=== PATIENT | male | born 2000 | race Two or more races ===

== ENCOUNTER 2024-09-13 19:47 | Emergency (ER) | payer OTHER ==
[~2024-09-13] VITALS: Ht 170.2 cm; Wt 68.5 kg
[2024-09-13 20:23] LABS: Urine Bacteria None Seen /hpf (None Seen)
[2024-09-13 20:50] LABS: Basophils # (auto) 0.1 10 ^3/uL (0-0.2); Basophils % (auto) 0.5 % (0.0-2.0); Eosinophils # (auto) 0.1 10 ^3/uL (0-0.8); Eosinophils % (auto) 0.7 % (0.0-7.0); Hematocrit 45.3 % (41.0-53.0); Hemoglobin 14.9 g/dL (13.5-17.5); Lymphocytes % (auto) 22.1 % (10.0-50.0); Mean Corpuscular Hemoglobin 28.5 pg (28.0-32.0); Mean Corpuscular Hgb Conc. 32.9 g/dL (32.0-36.0); Mean Corpuscular Volume 86.7 fL (80.0-100.0); Monocytes # (auto) 0.7 10 ^3/uL (0-1.3); Monocytes % (auto) 7.4 % (0.0-12.0); Neutrophils # (auto) 6.3 10 ^3/uL (1.6-8.6); Neutrophils % (auto) 69.3 % (37.0-80.0); Nucleated Red Blood Cells % 0.1 %; Platelet Count (auto) 264 10^3/uL (140-450); Red Blood Cells 5.22 10^6/uL (4.5-5.90); Red Cell Distribution Width 13.9 % (11.8-14.3); White Blood Cell 9.2 10^3/uL (4.4-10.8)
[2024-09-13 20:53] LABS: Urine Blood Negative /uL (Negative); Urine Clarity Clear (Clear); Urine Color Light-Yellow (Yellow); Urine Mucus FEW (None Seen); Urine Protein, UAD TRACE (Negative); Urine Specific Gravity 1.033 (1.001-1.035); Urine Squamous Epithelial Cell None Seen /hpf (<5); Urine Urobilinogen 2 mg/dL (Negative); Urine WBC < 1 /HPF (0-3)
[2024-09-13 21:15] LABS: Alkaline Phosphatase 88 U/L (46-116)
[2024-09-13 21:16] LABS: Alanine Aminotransferase 14 U/L (7-40); Anion Gap 8 (5-15); Aspartate Aminotransferase 15 U/L (13-40); BUN/Creatinine Ratio 15.8 (10.0-20.0); Bilirubin, Total 0.5 mg/dL (0.2-1.0); Blood Urea Nitrogen 16 mg/dL (9-23); Calcium 10.2 mg/dL (8.7-10.4); Carbon Dioxide 26 mmol/L (20-31); Chloride 104 mmol/L (98-107); Lipase 42 U/L (12-53); Potassium 3.9 mmol/L (3.5-5.1); Sodium 138 mmol/L (136-145)
[2024-09-13 21:33] LABS: Albumin 5.1 g/dL (3.2-4.8); Glucose 85 mg/dL (74-106); Total Protein 8.3 g/dL (5.7-8.2)
[2024-09-13 22:56] VITALS: RESP 14
[2024-09-13] MEDS: IOHEXOL 300 MG/ML 100ML BOTTLE IJ ONE (22:56)
--- NOTE | 2024-09-13 22:58 | ED.PDOC ---
GI ASSESSMENT HPI Comments 23-year-old male came to emergency room due to abdominal pain. States for the past 2 weeks, he has been having intermittent episodes of right lower quadrant abdominal pain, 8/10 intensity, worsens after meal intake, in associated bouts of nausea, vomiting and diarrhea. Denies any history of abdominal surgeries. No blood in the vomit or stool. Chief Complaint: Abdominal Pain Time Seen by MD: 22:56 Reviewed Notes: Nurses Notes Allergies: Coded Allergies: Ibuprofen (Verified Allergy, Unknown, 09/13/24) Information Source: Patient Mode of Arrival: Ambulatory Timing: Weeks Duration: Intermittent Quality: Cramping, Sharp, Stabbing Vomitus: Watery Stool: Loose, Watery Severity: Moderate Review of Systems REVIEW OF SYSTEMS: No fever, no chills, or fatigue HEENT: No sore throat, no earache, no congestion, no neck pain. Cardiac: No chest pain. No palpitations. Lungs: No shortness of breath, no cough. GI: (+) nausea, (+) vomiting, (+) diarrhea, no constipation, (+) abdominal pain : No dysuria, frequency, or urgency. No hematuria. No testicular pain or swelling. Musculoskeletal: No joint pain , no joint swelling, no extremity edema. Skin: No rash, no itching. Neuro: No headache, no dizziness, no weakness Vital Signs Vital Signs Date Time Temp Pulse Resp B/P (MAP) Pulse Ox O2 Delivery O2 Flow Rate FiO2 09/13/24 23:11 97.9 60 18 121/72 (88) 100 97.9 09/13/24 22:56 Room Air* 0 21 21 Physical Exam General: Awake, alert and oriented. No acute distress. Skin: Skin in warm, dry and intact. Appropriate color for ethnicity. Nailbeds pink with no cyanosis. HEENT: The head is normocephalic and atraumatic. Conjunctivae are clear without exudates or hemorrhage. Sclera is non-icteric. EOM are intact. No signs of nystagmus. Eyelids are normal in appearance without swelling or lesions. Oral mucosa is pink and moist Neck: The neck is supple with normal range of motion. No JVD. Cardiac: Heart rate and rhythm are normal. No murmurs, gallops, or rubs are auscultated. Respiratory: No signs of respiratory distress. Lung sounds are clear in all lobes bilaterally without rales, ronchi, or wheezes. Abdominal: Abdomen is soft, positive right lower quadrant tenderness, distention. No guarding, rebound or rigidity. Bowel sounds are present and normoactive in all four quadrants. Extremities: Upper and lower extremities are atraumatic in appearance without deformity or edema. Neurological: The patient is awake, alert and oriented to person, place, and time with normal speech. Speech is clear. There is no facial asymmetry. Psychiatric: Appropriate mood and affect. Good judgement and insight. No visual or auditory hallucinations. Past Medical History PAST MEDICAL HISTORY: Denies Surgical History: Denies all surgeries Family History Family History: Reviewed,noncontributory to illness Social History Smoker: Non-Smoker Alcohol: Denies ETOH Use Drugs: Denies Drug Use Lives In: Home Was a procedure done? Was a procedure done?: No GI differential Dx Differential Diagnosis: Appendicitis, Aortic dissection, Bowel Obstruction, Cholangitis, Cholecystitis, Constipation, Diverticular disease, Gastritis/PUD, Gastroenteritis, Ischemic Bowel, UTI, Urolithiasis, Other (Epididymitis, testicular torsion) X-Ray, Labs, Meds, VS Vital Signs Date Time Temp Pulse Resp B/P (MAP) Pulse Ox O2 Delivery O2 Flow Rate FiO2 09/13/24 23:11 97.9 60 18 121/72 (88) 100 97.9 09/13/24 22:56 14 Room Air* 0 21 21 09/13/24 20:01 98.5 78 16 125/72 (89) 100 98.5 Lab Test 09/13/24 20:38 09/13/24 20:04 Range/Units White Blood Count 9.2 4.4-10.8 10^3/uL Red Blood Count 5.22 4.5-5.90 10^6/uL Hemoglobin 14.9 13.5-17.5 g/dL Hematocrit 45.3 41.0-53.0 % Mean Corpuscular Volume 86.7 80.0-100.0 fL Mean Corpuscular Hemoglobin 28.5 28.0-32.0 pg Mean Corpuscular Hemoglobin Concent 32.9 32.0-36.0 g/dL Red Cell Distribution Width 13.9 11.8-14.3 % Platelet Count 264 140-450 10^3/uL Mean Platelet Volume 8.6 6.9-10.8 fL Neutrophils (%) (Auto) 69.3 37.0-80.0 % Lymphocytes (%) (Auto) 22.1 10.0-50.0 % Monocytes (%) (Auto) 7.4 0.0-12.0 % Eosinophils (%) (Auto) 0.7 0.0-7.0 % Basophils (%) (Auto) 0.5 0.0-2.0 % Neutrophils # (Auto) 6.3 1.6-8.6 10 ^3/uL Lymphocytes # (Auto) 2.0 0.4-5.4 10 ^3/uL Monocytes # (Auto) 0.7 0-1.3 10 ^3/uL Eosinophils # (Auto) 0.1 0-0.8 10 ^3/uL Basophils # (Auto) 0.1 0-0.2 10 ^3/uL Nucleated Red Blood Cells 0.1 % Sodium Level 138 136-145 mmol/L Potassium Level 3.9 3.5-5.1 mmol/L Chloride Level 104 98-107 mmol/L Carbon Dioxide Level 26 20-31 mmol/L Anion Gap 8 5-15 Blood Urea Nitrogen 16 9-23 mg/dL Creatinine 1.01 0.700-1.30 mg/dL Glomerular Filtration Rate Calc 108 >90 mL/min BUN/Creatinine Ratio 15.8 10.0-20.0 Serum Glucose 85 74-106 mg/dL Calcium Level 10.2 8.7-10.4 mg/dL Total Bilirubin 0.5 0.2-1.0 mg/dL Aspartate Amino Transferase (AST) 15 13-40 U/L Alanine Aminotransferase (ALT) 14 7-40 U/L Alkaline Phosphatase 88 46-116 U/L Total Protein 8.3 H 5.7-8.2 g/dL Albumin 5.1 H 3.2-4.8 g/dL Lipase 42 12-53 U/L Urine Color Light-yellow Yellow Urine Clarity Clear Clear Urine pH 6.0 5.0-9.0 Urine Specific [place] 1.033 1.001-1.035 Urine Protein Trace H Negative Urine Ketones 1+ H Negative Urine Blood Negative Negative /uL Urine Nitrite Negative Negative Urine Bilirubin Negative Negative Urine Urobilinogen 2 H Negative mg/dL Urine Leukocyte Esterase Negative Negative /uL Urine RBC 4 0 - 3 /hpf Urine Microscopic WBC < 1 0-3 /HPF Urine Squamous Epithelial Cells None seen <5 /hpf Urine Bacteria None seen None Seen /hpf Urine Mucus Few None Seen Urine Glucose Normal Normal mg/dL Time of 1ST Reevaluation: 22:54 Reevaluation 1ST: Unchanged Patient Education/Counseling: Diagnosis, Treatment Family Education/Counseling: Diagnosis, Treatment Departure 1 Departure Time of Disposition: 00:15 Impression: Primary Impression: Abdominal pain Disposition: 01 HOME / SELF CARE / HOMELESS Condition: Stable Additional Instructions: ED DISCHARGE INSTRUCTIONS Instructions: Please read all instructions provided in this packet carefully. Take Tylenol for pain as needed pain. Take Zofran/ondansetron as needed for vomiting. Although you have been discharged from the Emergency Department, this does not mean that you have a "clean bill of health". No definitive diagnosis for your symptoms has been made today. It is possible that you are in the process of developing a serious illness. This is why you must return to the ED without fail if any new or worsening symptoms (especially if your symptoms include chest pain, trouble breathing, worsening abdominal pain, fever, headache, confusion, trouble seeing, or trouble walking) It is also very important that you see a primary care doctor within the next 1-3 days to follow up. If you are unable to get an appointment, return to the ED for re-evaluation. Abdominal Pain: Care Instructions Overview Abdominal pain has many possible causes. Some aren't serious and get better on their own in a few days. Others need more testing and treatment. If your pain continues or gets worse, you need to be rechecked and may need more tests to find out what is wrong. You may need surgery to correct the problem. Don't ignore new symptoms, such as fever, nausea and vomiting, urination problems, pain that gets worse, and dizziness. These may be signs of a more serious problem. If you are not getting better, you may need more tests or treatment. The doctor has checked you carefully, but problems can develop later. If you notice any problems or new symptoms, get medical treatment right away. Follow-up care is a [place] part of your treatment and safety. Be sure to make and go to all appointments, and call your doctor if you are having problems. It's also a good idea to know your test results and keep a list of the medicines you take. How can you care for yourself at home? Rest until you feel better. To prevent dehydration, drink plenty of fluids. Choose water and other clear liquids until you feel better. If you have kidney, heart, or liver disease and have to limit fluids, talk with your doctor before you increase the amount of fluids you drink. When you feel like eating, start with small amounts. Do not have alcohol, caffeine, or spicy, hot, or high-fat foods for a day or two. Avoid anti-inflammatory medicines such as aspirin, ibuprofen (Advil, Motrin), and naproxen (Aleve). These can cause stomach upset. Talk to your doctor if you take daily aspirin for another health problem. When should you call for help? Call 911 anytime you think you may need emergency care. For example, call if: You passed out (lost consciousness). You pass maroon or very bloody stools. You vomit blood or what looks like coffee grounds. You have severe belly pain. Call your doctor now or seek immediate medical care if: Your pain gets worse, especially if it becomes focused in one area of your belly. You have a new or higher fever. Your stools are black and look like tar, or they have streaks of blood. You have unexpected vaginal bleeding. You have symptoms of a urinary tract infection. These may include: Pain when you urinate. Urinating more often than usual. Blood in your urine. You are dizzy or lightheaded, or you feel like you may faint. Watch closely for changes in your health, and be sure to contact your doctor if: You are not getting better as expected. Credits for Abdominal Pain: Care Instructions Current as of: April 19, 2023 Author: [employer] [place] Staff Clinical Review Board All [employer] education is reviewed by a team that includes physicians, nurses, advanced practitioners, registered dieticians, and other healthcare professionals. e-Prescriptions Ondansetron Odt 4MG Tab (ZOFRAN PO) 4 Mg Tb 4 MG PO TIDPRN PRN for 3 Days, #9 TAB ODT TAB-DISSOLVE IN MOUTH, THEN SWALLOW Prov: RAY ESTRADA MD 09/14/24 Acetaminophen (Acetaminophen Er) 650 Mg Tab 650 MG PO TIDPRN PRN for 3 Days, #9 TAB Prov: RAY ESTRADA MD 09/14/24 Comments 23-year-old male presented with abdominal pain. No peritoneal signs on abdominal exam. No evidence of acute abdomen at this time. patient is well appearing. Labs show no leukocytosis or elevation of LFTs. Imaging shows no acute process. Patient is afebrile. Patient is not hypotensive. Low suspicion for acute hepatobiliary disease (including acute cholecystitis, acute pancreatitis, PUD (including perforation), acute infectious process (pneumonia, hepatitis, pyelonephritis), acute appendicitis, vascular catastrophe, bowel obstructions, viscous perforation. Presentation not consistent with other acute, emergent causes of abdominal pain at this time. Patient well-appearing, nontoxic. Advised prompt follow-up with PCP, return to the ED with any new, worsening or concerning symptoms. Extensive evaluation was performed in attempt to identify or rule out: (See differential diagnosis section) The following tests were ordered, and results were reviewed by me and discussed with the patient: (See diagnostic results section) The following test were independently interpreted by me: N/A I reviewed and agreed with the following test results read by other providers: N/A I reviewed the following notes from the pt's past medical encounters: (None available at this time) Additional information was gathered from interviewing the following independent historians: N/A Drug therapy requiring intensive monitoring for toxicity: IV contrast Parenteral controlled substances: N/A Decision regarding elective major surgery with identified patient or procedure risk factors: N/A Decision regarding emergency major surgery: N/A Decision not to resuscitate or to de-escalate care because of poor prognosis: N/A Diagnosis or treatment significantly limited by social determinants of health: N/A Decision regarding hospitalization or escalation of hospital level of care: Risks and benefits of admission for further treatment of patient's condition was considered however due to patient's stable condition patient will be discharged to follow up closely or return to care for worsening of condition or inability to follow up. Critical Care Note Critical Care Time?: No Stability Stability form required: No Heart Score Heart Score: Heart Score Response (Comments) Value History N/A 0 EKG N/A 0 Age N/A 0 Risk Factors N/A 0 Troponin N/A 0 Total 0 I personally scribed for RAY ESTRADA MD ([email or web address]) on 09/13/24 at 22:58. Electronically submitted by Jeremias Alvarado ([facility] ([facility]3]). RAY ESTRADA MD Sep 13, 2024 22:58
[2024-09-13 23:11] VITALS: BP 121/72; PULSE 60; RESP 18; O2SAT 100
--- NOTE | 2024-09-13 23:22 | DVH ---
CT OF THE ABDOMEN AND PELVIS WITH CONTRAST. HISTORY: Right lower quadrant abdominal COMPARISON: None TECHNIQUE: Helical axial CT images of the abdomen and pelvis were obtained with intravenous contrast. Multiplanar reformats. One or more of the following radiation dose reduction techniques were used fo r this examination: automated exposure control, adjustment of the mA and/or kV according to patient s ize, use of iterative reconstruction technique. FINDINGS: Imaged lung bases are grossly clear. Liver: No discrete hepatic lesions as visualized. Gallbladder and biliary system: No sizable, radiopaque cholelithiasis or biliary ductal dilatation. Pancreas: Negative. Spleen: Negative. Adrenal Glands: Negative. Kidneys and collecting system: No hydroureteronephrosis. Retroperitoneum: No evidence of abdominal aortic aneurysm. Lymph nodes: No discretely enlarged lymph nodes identified. Bowel: No evidence of bowel obstruction. Normal caliber appendix. No free intraperitoneal air or flui d identified. Pelvis: No sizable bladder calculus. Osseous structures: No destructive osseous lesions identified. IMPRESSION: No bowel obstruction, free intraperitoneal air/fluid or sizable inflammatory collections identified a t this time.
[2024-09-14] MEDS ORDERED: KETOROLAC TROMETH 30 MG/ML 1ML VIAL IV ONE (00:15)
[2024-09-14] MEDS ORDERED: ACET650T12 PO (00:19)
[2024-09-14] MEDS ORDERED: ZOFR4T PO (00:19)
[2024-09-14 00:31] VITALS: TEMP 98.9
[2024-09-14] MEDS: ACETAMINOPHEN 325 MG TAB PO ONE (00:31)
== END 2024-09-14 00:32 | disposition home or self-care (01) ==
LOC: ER 19:55
DX: R10.31 Right lower quadrant pain (principal); Z88.6 Allergy status to analgesic agent
CPT/HCPCS: 36415; 74177; 80053; 81001; 83690; 85025; 99285; Q9967

== ENCOUNTER 2024-10-01 14:10 | Inpatient (IN) | payer MEDICAID, OTHER ==
[~2024-10-01] VITALS: Ht 175.3 cm; Wt 67.1 kg
[~2024-10-01 14:10] MED LIST: ACET650T12 PO; ZOFR4T PO
[2024-10-01 16:45] LABS: Urine Bacteria None Seen /hpf (None Seen)
--- NOTE | 2024-10-01 16:48 | DVH ---
INDICATION: RLQ pain. r/o appendicitis TECHNIQUE: Graded compression technique along with Multiple real-time sonographic images were obtain ed for evaluation of the right lower quadrant. FINDINGS: The appendix was not visualized. No free fluid or lymph nodes are seen on this exam. IMPRESSION: 1.Nonvisualization of the appendix, thus cannot exclude appendicitis.
[2024-10-01 16:59] LABS: Urine Blood Negative /uL (Negative); Urine Clarity Clear (Clear); Urine Color Yellow (Yellow); Urine Mucus FEW (None Seen); Urine Protein, UAD TRACE (Negative); Urine Specific Gravity 1.034 (1.001-1.035); Urine Squamous Epithelial Cell FEW /hpf (<5); Urine Urobilinogen Normal (Negative); Urine WBC 1 /HPF (0-3)
--- NOTE | 2024-10-01 17:13 | ED.PDOC ---
GI ASSESSMENT HPI Comments 23-YEAR-OLD MALE PRESENTS TO ER WITH COMPLAINTS OF ABDOMINAL PAIN X3 WEEKS. PATIENT IS PRESENT WITH MOTHER WITH PAST MEDICAL HISTORY OF AUTISM, REPORTING THAT HE HAS BEEN EXPERIENCING INTERMITTENT RIGHT LOWER QUADRANT ABDOMINAL PAIN X3 WEEKS THAT GOT WORSE/PERSISTENT X1 HOUR PROMPTING PATIENT TO COME TO ER FOR FURTHER EVALUATION. HE RATES HIS CURRENT PAIN A 3/10 TO RIGHT LOWER QUADRANT ABDOMEN WITHOUT RADIATION. DENIES USE OF MEDICATIONS FOR CURRENT SYMPTOMS. PATIENT PRESENTS TO ER AMBULATORY ON ARRIVAL, WITH STEADY GAIT, IN NO DISTRESS, WITH VITALS STABLE. DENIES FEVER, BODY ACHES, CHILLS, NAUSEA/VOMITING, CHANGES IN URINATION/BM OR ANY FURTHER SYMPTOMS/COMPLAINTS Chief Complaint: Abdominal Pain Time Seen by MD: 15:28 Primary Care Provider: UNKNOWN Reviewed Notes: Nurses Notes, Medications, Allergies Allergies: Coded Allergies: Ibuprofen (Verified Allergy, Unknown, 09/13/24) Home Meds Active Scripts Levofloxacin Hemihydrate (LEVOFLOXACIN) 500 Mg Tab, 1 TAB PO DAILY for 7 Days, #7 TAB Prov:KISHORE VELÁZQUEZ MD 10/04/24 Information Source: Patient Mode of Arrival: Ambulatory Past Medical History Past Medical History (Other): AUTISM Surgical History: Denies all surgeries Family History Family History: Unknown Social History Smoker: Non-Smoker Alcohol: Denies ETOH Use Drugs: Denies Drug Use Lives In: Home Constitutional: denies: chills, diaphoresis, fatigue, fever, malaise, sweats, weakness, others EENTM: denies: blurred vision, double vision, ear bleeding, ear discharge, ear drainage, ear pain, ear ringing, eye pain, eye redness, hearing loss, mouth pain, mouth swelling, nasal discharge, nose bleeding, nose congestion, nose pain, photophobia, tearing, throat pain, throat swelling, voice changes, others Respiratory: denies: cough, hemoptysis, orthopnea, SOB at rest, shortness of breath, SOB with excertion, stridor, wheezing, others Cardiovascular: denies: chest pain, dizzy spells, diaphoresis, Dyspnea on exertion, edema, irregular heart beat, left arm pain, lightheadedness, palpitations, PND, syncope, others Gastrointestinal: reports: others ( STATED IN HPI) Genitourinary: denies: burning, dysuria, flank pain, frequency, hematuria, incontinence, penile discharge, penile sore, pain, testicle pain, testicle swelling, urgency, others Neurological: denies: dizziness, fainting, headache, left sided numbness, left sided weakness, numbness, paresthesia, pre-existing deficit, right sided numbness, right sided weakness, seizure, speech problems, tingling, tremors, weakness, others Musculoskeletal: denies: back pain, gout, joint pain, joint swelling, muscle pain, muscle stiffness, neck pain, others Integumetry: denies: bruises, change in color, change in hair/nails, dryness, laceration, lesions, lumps, rash, wounds, others Allergic/Immunocompromised: denies: Difficulty Healing, Frequent Infections, Hives, Itching, others Hematologic/Lymphatic: denies: anemia, blood clots, easy bleeding, easy bruising, swollen glands, others Endocrine: denies: excessive hunger, excessive sweating, excessive thirst, excessive urination, flushing, intolerance to cold, intolerance to heat, une xplained weight gain, unexplained weight loss, others Psychiatric: denies: anxiety, bipolar disorder, depression, hopeless, panic disorder, schizophrenia, sleepless, suicidal, others Physical Exam General Appearance: No Apparent Distress HEENT: PERRL/EOMI Neck: Full Range of Motion, Non-Tender, Normal Respiratory: Chest Non-Tender, Lungs Clear, No Accessory Muscle Use, No Respiratory Distress, Normal Breath Sounds Cardiovascular: No Murmur, No Gallop, Regular Rate/Rhythm Breast Exam: Deferred Gastrointestinal: No Organomegaly, No Pulsatile Mass, Normal Bowel Sounds, RLQ (TTP TO RIGHT LOWER QUADRANT OF ABDOMEN NOTED. NEGATIVE ROVSING'S, PSOAS AND OBTURATOR SIGN. NO REBOUND/GUARDING NOTED. 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 Was a procedure done?: No Sedation Sedation?: No GI differential Dx Differential Diagnosis: GI hemorrhage, Ischemic Bowel, Trauma intraabdominal X-Ray, Labs, Meds, VS Vital Signs Date Time Temp Pulse Resp B/P (MAP) Pulse Ox O2 Delivery O2 Flow Rate FiO2 10/01/24 20:33 67 10/01/24 15:29 97.9 69 20 110/69 (83) 98 97.9 10/01/24 15:29 69 20 98 Room Air 10/01/24 14:11 97.9 69 20 110/64 (79) 98 97.9 Lab Test 10/01/24 19:52 10/01/24 19:40 10/01/24 17:49 10/01/24 14:38 Range/Units Prothrombin Time 11.4 9.3-11.8 sec Prothrombin Time INR 1.08 0.9-1.15 Activated Partial Thromboplast Time 33.1 24.5-34.5 SEC Magnesium Level 2.0 1.6-2.6 mg/dL Aspartate Amino Transferase (AST) 15 13-40 U/L Alanine Aminotransferase (ALT) 14 7-40 U/L Alkaline Phosphatase 94 46-116 U/L Lipase 42 12-53 U/L Thyroid Stimulating Hormone (TSH) 1.45 0.55-4.78 uIU/mL Lactic Acid Level 1.1 0.4-2.0 mmol/L White Blood Count 6.9 4.4-10.8 10^3/uL Red Blood Count 4.67 4.5-5.90 10^6/uL Hemoglobin 13.8 13.5-17.5 g/dL Hematocrit 40.2 L 41.0-53.0 % Mean Corpuscular Volume 86.2 80.0-100.0 fL Mean Corpuscular Hemoglobin 29.6 28.0-32.0 pg Mean Corpuscular Hemoglobin Concent 34.3 32.0-36.0 g/dL Red Cell Distribution Width 14.4 H 11.8-14.3 % Platelet Count 240 140-450 10^3/uL Mean Platelet Volume 8.6 6.9-10.8 fL Neutrophils (%) (Auto) 60.9 37.0-80.0 % Lymphocytes (%) (Auto) 29.3 10.0-50.0 % Monocytes (%) (Auto) 8.0 0.0-12.0 % Eosinophils (%) (Auto) 1.2 0.0-7.0 % Basophils (%) (Auto) 0.6 0.0-2.0 % Neutrophils # (Auto) 4.2 1.6-8.6 10 ^3/uL Lymphocytes # (Auto) 2.0 0.4-5.4 10 ^3/uL Monocytes # (Auto) 0.6 0-1.3 10 ^3/uL Eosinophils # (Auto) 0.1 0-0.8 10 ^3/uL Basophils # (Auto) 0 0-0.2 10 ^3/uL Nucleated Red Blood Cells 0.1 % Sodium Level 138 136-145 mmol/L Potassium Level 4.0 3.5-5.1 mmol/L Chloride Level 104 98-107 mmol/L Carbon Dioxide Level 25 20-31 mmol/L Anion Gap 9 5-15 Blood Urea Nitrogen 14 9-23 mg/dL Creatinine 0.79 0.700-1.30 mg/dL Glomerular Filtration Rate Calc 129 >90 mL/min BUN/Creatinine Ratio 17.7 10.0-20.0 Serum Glucose 87 74-106 mg/dL Calcium Level 9.8 8.7-10.4 mg/dL Urine Color Yellow Yellow Urine Clarity Clear Clear Urine pH 6.0 5.0-9.0 Urine Specific [place] 1.034 1.001-1.035 Urine Protein Trace H Negative Urine Ketones Negative Negative Urine Blood Negative Negative /uL Urine Nitrite Negative Negative Urine Bilirubin Negative Negative Urine Urobilinogen Normal Negative mg/dL Urine Leukocyte Esterase Negative Negative /uL Urine RBC 3 0 - 3 /hpf Urine Microscopic WBC 1 0-3 /HPF Urine Squamous Epithelial Cells Few <5 /hpf Urine Bacteria None seen None Seen /hpf Urine Mucus Few None Seen Urine Glucose Normal Normal mg/dL Urine Opiates Screen Neg NEGATIVE Urine Fentanyl Screen Neg NEGATIVE Urine Barbiturates Screen Neg NEGATIVE Urine Phencyclidine Screen Neg NEGATIVE Urine Amphetamines Screen Neg NEGATIVE Urine Benzodiazepines Screen Neg NEGATIVE Urine Cocaine Screen Neg NEGATIVE Urine Cannabinoids Screen Neg NEGATIVE Microbiology Date/Time Source Procedure Growth Status 10/01/24 19:52 Blood Blood Culture - Preliminary NO GROWTH AFTER 72 HOURS OF INCUBATION. Resulted 10/01/24 19:40 Blood Blood Culture - Preliminary NO GROWTH AFTER 72 HOURS OF INCUBATION. Resulted PATIENT: KATELYN BIGGS ACCT: [id number] UNIT: [id number] : 2000 LOC: ER ROOM / BED: / AGE / SEX: 23 / M ADM STATUS: REG ER SERVICE 1717 ORDERING PHYSICIAN: MINA GREEN NP PROCEDURE(s): ABPLIV - CT AB PEL WITH IV CON ONLY REASON: RLQ pain. R/o appendicitis ORDER NUMBER(s): [id number], ACCESSION NUMBER(s): [id number] CT OF THE ABDOMEN AND PELVIS WITH CONTRAST. HISTORY: RLQ pain. R/o appendicitis COMPARISON: CT CT AB PEL WITH IV CON ONLY on DOS: 09/13/24 TECHNIQUE: Helical axial CT images of the abdomen and pelvis were obtained with intravenous contrast. Multiplanar reformats. One or more of the following radiation dose reduction techniques were used for this examination: automated exposure control, adjustment of the mA and/or kV according to patient size, use of iterative reconstruction technique. FINDINGS: Imaged lung bases are grossly clear. Liver: No discrete hepatic lesions as visualized. Gallbladder and biliary system: No sizable, radiopaque cholelithiasis or biliary ductal dilatation. Pancreas: Negative. Spleen: Negative. Adrenal Glands: Negative. Kidneys and collecting system: No hydroureteronephrosis. Retroperitoneum: No evidence of abdominal aortic aneurysm. Lymph nodes: No discretely enlarged lymph nodes identified. Bowel: No evidence of bowel obstruction. Appendix measures approximately 8 mm in diameter. No periappendiceal inflammation or fluid. No sizable appendicolith. No free intraperitoneal air. Pelvis: No sizable bladder calculus. Osseous structures: No destructive osseous lesions identified. IMPRESSION: Borderline prominence of the appendix. No periappendiceal inflammatory changes noted at this time. ATED BY: MARQUIS THURMAN MD DICTATED DATE/TIME: 10/01/241858 SIGNED BY: MARQUIS THURMAN MD SIGNED DATE/TIME: 10/01/241858 CC: PATIENT: KATELYN BIGGS ACCT: [id number] UNIT: [id number] : 2000 LOC: ER ROOM / BED: / AGE / SEX: 23 / M ADM STATUS: REG ER SERVICE 1604 ORDERING PHYSICIAN: MINA GREEN NP PROCEDURE(s): RTLQD - RIGHT LOWER QUAD REASON: RLQ pain. r/o appendicitis ORDER NUMBER(s): [id number], ACCESSION NUMBER(s): [id number] INDICATION: RLQ pain. r/o appendicitis TECHNIQUE: Graded compression technique along with Multiple real-time sonographic images were obtained for evaluation of the right lower quadrant. FINDINGS: The appendix was not visualized. No free fluid or lymph nodes are seen on this exam. IMPRESSION: 1.Nonvisualization of the appendix, thus cannot exclude appendicitis. 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 MEMBER VERBALIZED UNDERSTANDING AND AGREEABLE WITH CURRENT PLAN OF CARE PATIENT RESTING COMFORTABLY AT BEDSIDE PATIENT ADMITTED TO HOSPITALIST FOR ACUTE APPENDICITIS/NEED FOR SURGICAL CONSULT Images Reviewed?: Images reviewed and evaluated by me Time of 1ST Reevaluation: 18:05 Reevaluation 1ST: N/A Time of 2ND Reevaluation: 19:02 Reevaluation 2ND: Unchanged Patient Education/Counseling: Diagnosis, Treatment Family Education/Counseling: Diagnosis, Treatment Change of Shift?: Yes (ENDORSED PATIENT FROM [facility] ENRIQUEZ AT SHIFT CHANGE) Departure 1 Departure Time of Disposition: 19:22 Impression: Primary Impression: Appendicitis, acute Qualified Codes: K35.80 - Unspecified acute appendicitis Disposition: ADMITTED INPATIENT Condition: Stable e-Prescriptions Levofloxacin Hemihydrate (LEVOFLOXACIN) 500 Mg Tab 1 TAB PO DAILY for 7 Days, #7 TAB Prov: KISHORE VELÁZQUEZ MD 10/04/24 Critical Care Note Critical Care Time?: No Stability Stability form required: No Heart Score Heart Score: Heart Score Response (Comments) Value History N/A 0 EKG N/A 0 Age N/A 0 Risk Factors N/A 0 Troponin N/A 0 Total 0 MINA GREEN NP Oct 01, 2024 17:13 JERONIMO BLUE Oct 01, 2024 19:27
[2024-10-01 17:59] LABS: Basophils # (auto) 0 10 ^3/uL (0-0.2); Basophils % (auto) 0.6 % (0.0-2.0); Eosinophils # (auto) 0.1 10 ^3/uL (0-0.8); Eosinophils % (auto) 1.2 % (0.0-7.0); Hematocrit 40.2 % (41.0-53.0); Hemoglobin 13.8 g/dL (13.5-17.5); Lymphocytes % (auto) 29.3 % (10.0-50.0); Mean Corpuscular Hemoglobin 29.6 pg (28.0-32.0); Mean Corpuscular Hgb Conc. 34.3 g/dL (32.0-36.0); Mean Corpuscular Volume 86.2 fL (80.0-100.0); Monocytes # (auto) 0.6 10 ^3/uL (0-1.3); Neutrophils # (auto) 4.2 10 ^3/uL (1.6-8.6); Neutrophils % (auto) 60.9 % (37.0-80.0); Nucleated Red Blood Cells % 0.1 %; Platelet Count (auto) 240 10^3/uL (140-450); Red Blood Cells 4.67 10^6/uL (4.5-5.90); Red Cell Distribution Width 14.4 % (11.8-14.3); White Blood Cell 6.9 10^3/uL (4.4-10.8)
[2024-10-01 18:09] LABS: Anion Gap 9 (5-15); Carbon Dioxide 25 mmol/L (20-31); Chloride 104 mmol/L (98-107); Sodium 138 mmol/L (136-145)
[2024-10-01 18:10] LABS: Calcium 9.8 mg/dL (8.7-10.4)
[2024-10-01 18:15] LABS: BUN/Creatinine Ratio 17.7 (10.0-20.0); Blood Urea Nitrogen 14 mg/dL (9-23); Glucose 87 mg/dL (74-106)
[2024-10-01] MEDS: IOHEXOL 300 MG/ML 100ML BOTTLE IJ ONE (18:16)
--- NOTE | 2024-10-01 19:01 | DVH ---
CT OF THE ABDOMEN AND PELVIS WITH CONTRAST. HISTORY: RLQ pain. R/o appendicitis COMPARISON: CT CT AB PEL WITH IV CON ONLY on DOS: 09/13/24 TECHNIQUE: Helical axial CT images of the abdomen and pelvis were obtained with intravenous contrast. Multiplanar reformats. One or more of the following radiation dose reduction techniques were used fo r this examination: automated exposure control, adjustment of the mA and/or kV according to patient s ize, use of iterative reconstruction technique. FINDINGS: Imaged lung bases are grossly clear. Liver: No discrete hepatic lesions as visualized. Gallbladder and biliary system: No sizable, radiopaque cholelithiasis or biliary ductal dilatation. Pancreas: Negative. Spleen: Negative. Adrenal Glands: Negative. Kidneys and collecting system: No hydroureteronephrosis. Retroperitoneum: No evidence of abdominal aortic aneurysm. Lymph nodes: No discretely enlarged lymph nodes identified. Bowel: No evidence of bowel obstruction. Appendix measures approximately 8 mm in diameter. No periapp endiceal inflammation or fluid. No sizable appendicolith. No free intraperitoneal air. Pelvis: No sizable bladder calculus. Osseous structures: No destructive osseous lesions identified. IMPRESSION: Borderline prominence of the appendix. No periappendiceal inflammatory changes noted at this time.
--- NOTE | 2024-10-01 19:46 | DVH ---
CHEST RADIOGRAPH Indication: PRE-OP Technique: Single frontal view of the chest was obtained Comparison: None FINDINGS: Lines and Tubes: None Lungs: No focal consolidation. Pleura: No effusion. No pneumothorax. Cardiomediastinal contours: Unremarkable Bones: No acute osseous abnormality. IMPRESSION: 1. No active cardiopulmonary disease.
[2024-10-01] MEDS: PIPERACILLIN-TAZOB 3.375GM 100 ML IV ONE (20:09)
[2024-10-01 20:26] LABS: Alanine Aminotransferase 14 U/L (7-40); Alkaline Phosphatase 94 U/L (46-116); Lipase 42 U/L (12-53)
[2024-10-01 20:27] LABS: Aspartate Aminotransferase 15 U/L (13-40)
[2024-10-01 20:45] LABS: INR 1.08 (0.9-1.15); Partial Thromboplastin Time 33.1 SEC (24.5-34.5); Prothrombin Time 11.4 sec (9.3-11.8)
--- NOTE | 2024-10-01 22:28 | DVHHPRES ---
History of Present Illness Resident Creating Document: TAMAR MORRIS RESDIENT History of Present Illness 24 yo Old male with past medical history of autism came to the hospital due to abdominal pain since 1 month. Per patient, 1st she had abdominal pain around epigastric area, which later transferred to the right lower quadrant. He describes the pain as burning, 5/10, constant but increased with taking food. He also reports nausea, diarrhea and dysuria. He denies fever, vomiting, or any recent sick contacts. PMHx: Autism PSHx: Not significant Family history: Father has diabetes Social history: Lives with the family at home, denies smoking or any other drug use Home medication: Does not take any medicine Allergic history: Ibuprofen Review of Systems Review of Systems General: patient denies fever, fatigue, weaknes, sweating, any recent changes in appetite and weight HEENT: No headaches, visiual changes, hearing loss, tinnitus, nasal congestion and discharge, and sore throat. Cardiovascular: Denies chest pain, palpitations, dyspnea on exertion, orthopnea, or claudication. Respiratory: No cough, and wheezing. Gastrointestinal: Reports nausea and abdominal pain Genitourinary: Reports dysuria Endocrine: No heat or cold intolerance, polydipsia, polyuria, and polyphagia. Neurological: No dizziness, extremity weakness and numbness, tremors, gait disturbance, seizures, and memory impairment. Psychiatric: Denies depression, anxiety,or insomnia. Musculoskeletal: Denies neck pain, stiffness and swelling, back pain, muscle weakness, joint pain, stiffness, swelling, or limited range of motion. Skin: No rashes, itching, skin lesion, changes in hair, nail, skin texture and breast. Hematologic/Lymphatic: Denies easy bruising, bleeding tendencies, or lymph node enlargement. Allergies: Coded Allergies: Ibuprofen (Verified Allergy, Unknown, 09/13/24) Exam Vital Signs Vital Signs Date Time Temp Pulse Resp B/P (MAP) Pulse Ox O2 Delivery O2 Flow Rate FiO2 10/01/24 20:33 67 10/01/24 15:29 97.9 20 110/69 (83) 98 97.9 10/01/24 15:29 Room Air Exam General Appearance: Alert, Oriented X3, Cooperative, No acute distress HEENT: Atraumatic, PERRLA, EOMI, Mucous membrane moist/pink Respiratory: Clear to auscultation, Normal air movement Cardiovascular: Regular rate, Normal S1, Normal S2, No murmurs, no chest wall tenderness Abdominal: Mild right lower quadrant tenderness Extremities: No clubbing, No cyanosis, No edema, Normal pulses, No tenderness/swelling Skin: No rashes, No breakdown, No significant lesion Neuro: Normal gait, Normal speech, Strength at 5/5 X4 ext, Normal tone, Sensation intact, Cranial nerves 3-12 NL, Reflexes 2+ Psych/Mental Status: Mental status NL, Mood NL Labs/Xrays Labs Test 10/01/24 19:52 10/01/24 19:40 10/01/24 17:49 10/01/24 14:38 Range/Units Prothrombin Time 11.4 9.3-11.8 sec Prothrombin Time INR 1.08 0.9-1.15 Activated Partial Thromboplast Time 33.1 24.5-34.5 SEC Aspartate Amino Transferase (AST) 15 13-40 U/L Alanine Aminotransferase (ALT) 14 7-40 U/L Alkaline Phosphatase 94 46-116 U/L Lipase 42 12-53 U/L Lactic Acid Level 1.1 0.4-2.0 mmol/L White Blood Count 6.9 4.4-10.8 10^3/uL Red Blood Count 4.67 4.5-5.90 10^6/uL Hemoglobin 13.8 13.5-17.5 g/dL Hematocrit 40.2 L 41.0-53.0 % Mean Corpuscular Volume 86.2 80.0-100.0 fL Mean Corpuscular Hemoglobin 29.6 28.0-32.0 pg Mean Corpuscular Hemoglobin Concent 34.3 32.0-36.0 g/dL Red Cell Distribution Width 14.4 H 11.8-14.3 % Platelet Count 240 140-450 10^3/uL Mean Platelet Volume 8.6 6.9-10.8 fL Neutrophils (%) (Auto) 60.9 37.0-80.0 % Lymphocytes (%) (Auto) 29.3 10.0-50.0 % Monocytes (%) (Auto) 8.0 0.0-12.0 % Eosinophils (%) (Auto) 1.2 0.0-7.0 % Basophils (%) (Auto) 0.6 0.0-2.0 % Neutrophils # (Auto) 4.2 1.6-8.6 10 ^3/uL Lymphocytes # (Auto) 2.0 0.4-5.4 10 ^3/uL Monocytes # (Auto) 0.6 0-1.3 10 ^3/uL Eosinophils # (Auto) 0.1 0-0.8 10 ^3/uL Basophils # (Auto) 0 0-0.2 10 ^3/uL Nucleated Red Blood Cells 0.1 % Sodium Level 138 136-145 mmol/L Potassium Level 4.0 3.5-5.1 mmol/L Chloride Level 104 98-107 mmol/L Carbon Dioxide Level 25 20-31 mmol/L Anion Gap 9 5-15 Blood Urea Nitrogen 14 9-23 mg/dL Creatinine 0.79 0.700-1.30 mg/dL Glomerular Filtration Rate Calc 129 >90 mL/min BUN/Creatinine Ratio 17.7 10.0-20.0 Serum Glucose 87 74-106 mg/dL Calcium Level 9.8 8.7-10.4 mg/dL Urine Color Yellow Yellow Urine Clarity Clear Clear Urine pH 6.0 5.0-9.0 Urine Specific [place] 1.034 1.001-1.035 Urine Protein Trace H Negative Urine Ketones Negative Negative Urine Blood Negative Negative /uL Urine Nitrite Negative Negative Urine Bilirubin Negative Negative Urine Urobilinogen Normal Negative mg/dL Urine Leukocyte Esterase Negative Negative /uL Urine RBC 3 0 - 3 /hpf Urine Microscopic WBC 1 0-3 /HPF Urine Squamous Epithelial Cells Few <5 /hpf Urine Bacteria None seen None Seen /hpf Urine Mucus Few None Seen Urine Glucose Normal Normal mg/dL Assessment/Plan Assessment/Plan Possible chronic appendicitis CT scan shows, borderline prominence of the appendix. No periappendiceal inflammatory changes noted at this time Consulted surgery Stool studies Empiric antibiotic, Cipro and Flagyl Pain management IV fluid History of autism DIET: NPO after midnight GI PROPHYLAXIS:: Protonix CODE STATUS: Goal of care discussed for more than 18 minutes, full code DISPOSITION: Med/surge Patient's status and plan discussed with the patient, patient's aunt and and RN. Case discussed with Dr. Bean. Plan discussed with: Patient, Other (RN) My Orders Orders - TAMAR MORRIS Procedure Category Date Status Time Admit ADMIT 10/01/24 Verified 22:22 Code Status CODE 10/01/24 Verified 22:22 Vital Signs RISSA 10/01/24 Verified 22:22 Review Orders With RISSA 10/01/24 Verified Adm. 22:22 Notify Md Of Changes RISSA 10/01/24 Verified From Base 22:22 Advance Directive RISSA 10/01/24 Verified 22:22 Patient Condition ORDERS 10/01/24 Verified 22:22 Allergies RISSA 10/01/24 Verified 22:22 Ondansetron Hcl PHA 10/01/24 Verified (Zofran) 22:30 Drug Screen LAB 10/01/24 Verified 22:22 Stat Ekg For Chest RISSA 10/01/24 Verified Pain 22:22 Notify Md Of Changes RISSA 10/01/24 Verified From Base 22:22 Comprehensive LAB 10/02/24 Verified Metabolic Panel 04:00 Complete Blood Count LAB 10/02/24 Verified 04:00 Thyroid Stimulating LAB 10/01/24 Verified Hormone 22:22 Magnesium LAB 10/01/24 Verified 22:22 * Surgical Consult CONS 10/01/24 Verified NS PHA 10/01/24 Verified 22:30 Pantoprazole PHA 10/01/24 Verified (Protonix) 22:30 Pantoprazole PHA 10/02/24 Verified (Protonix) 10:00 Metronidazole Ivpb PHA 10/02/24 Verified Flagyl 06:00 Metronidazole Ivpb PHA 10/01/24 Verified Flagyl 22:30 Ciprofloxacin PHA 10/01/24 Verified 400mg/200ml (Cipro Iv) 22:30 Ciprofloxacin PHA 10/02/24 Verified 400mg/200ml (Cipro Iv) 10:00 Date of Service: Oct 01, 2024 Billing Provider: GENEVA BEAN MD Common Visit Codes: [id number] INP/OBS CARE (HIGH) TAMAR MORRIS RESDIENT Oct 01, 2024 22:28 GENEVA BEAN MD Oct 07, 2024 12:14
[2024-10-01] MEDS ORDERED: ONDANSETRON HCL 4 MG/2 ML VIAL IV PRN (22:30)
[2024-10-01] MEDS ORDERED: KETOROLAC TROMETH 30 MG/ML 1ML VIAL IV PRN (22:30)
[2024-10-01] MEDS ORDERED: KETOROLAC TROMETH 30 MG/ML 1ML VIAL IV ONE (22:30)
[2024-10-01] MEDS ORDERED: MORPHINE SULFATE INJ 2 MG/ml SYRG IV PRN (23:00)
[2024-10-01 23:02] LABS: Amphetamine Screen, Urine Neg (NEGATIVE); Barbiturate Scree,Urine Neg (NEGATIVE); Benzodiazephine Screen, Urine Neg (NEGATIVE); Cannabinoid Screen, Urine Neg (NEGATIVE); Opiate Scree,Urine Neg (NEGATIVE); Phencyclidine Screen, Urine Neg (NEGATIVE)
[2024-10-01] MEDS: SODIUM CHLORIDE 0.9% 1,000 ML IV ONE (23:14)
[2024-10-01] MEDS: PANTOPRAZOLE 40 MG/10 ML VIAL INJ IV ONE (23:14)
[2024-10-01 23:22] LABS: Cocaine Screen, Urine Neg (NEGATIVE)
[2024-10-01] MEDS: CIPROFLOXACIN 400MG/200ML 200 ML IV ONE (23:22)
[2024-10-01 23:30] VITALS: PULSE 75; RESP 17; O2SAT 100
[2024-10-02] VITALS (7 sets, daily range): BP systolic 104–122; BP diastolic 53–70; PULSE 51–78; RESP 16–20; TEMP 97.5–98.1; O2SAT 97–100
[2024-10-02] MEDS: metroNIDAZOLE 500MG/100ML 100 ML IV ONE (00:38)
[2024-10-02] MEDS: HYDROcodone-ACET 5/325MG TAB PO PRN (03:19)
[2024-10-02] MEDS: metroNIDAZOLE 500MG/100ML 100 ML IV SCH (05:26)
[2024-10-02 06:32] LABS: Alanine Aminotransferase 10 U/L (7-40); Albumin 4.1 g/dL (3.2-4.8); Alkaline Phosphatase 75 U/L (46-116); Anion Gap 8 (5-15); Blood Urea Nitrogen 12 mg/dL (9-23); Carbon Dioxide 25 mmol/L (20-31); Chloride 106 mmol/L (98-107); Glucose 106 mg/dL (74-106); Sodium 139 mmol/L (136-145); Total Protein 6.5 g/dL (5.7-8.2)
[2024-10-02 06:33] LABS: Bilirubin, Total 0.5 mg/dL (0.2-1.0)
[2024-10-02 06:36] LABS: Basophils # (auto) 0 10 ^3/uL (0-0.2); Basophils % (auto) 0.7 % (0.0-2.0); Eosinophils # (auto) 0.1 10 ^3/uL (0-0.8); Eosinophils % (auto) 2.4 % (0.0-7.0); Hematocrit 39.2 % (41.0-53.0); Hemoglobin 12.8 g/dL (13.5-17.5); Lymphocytes # (auto) 1.6 10 ^3/uL (0.4-5.4); Lymphocytes % (auto) 25.3 % (10.0-50.0); Mean Corpuscular Hemoglobin 28.6 pg (28.0-32.0); Mean Corpuscular Hgb Conc. 32.5 g/dL (32.0-36.0); Mean Corpuscular Volume 87.8 fL (80.0-100.0); Monocytes # (auto) 0.8 10 ^3/uL (0-1.3); Monocytes % (auto) 12.4 % (0.0-12.0); Neutrophils # (auto) 3.7 10 ^3/uL (1.6-8.6); Neutrophils % (auto) 59.2 % (37.0-80.0); Platelet Count (auto) 233 10^3/uL (140-450); Red Blood Cells 4.47 10^6/uL (4.5-5.90); Red Cell Distribution Width 14.5 % (11.8-14.3); White Blood Cell 6.2 10^3/uL (4.4-10.8)
[2024-10-02 06:43] LABS: Aspartate Aminotransferase 12 U/L (13-40); Potassium 3.4 mmol/L (3.5-5.1)
--- NOTE | 2024-10-02 08:46 | DVHINCON2 ---
Date of service: Oct 02, 2024 Family History: Diabetes mellitus G8 MOTHER Allergies: Coded Allergies: Ibuprofen (Verified Allergy, Unknown, 09/13/24) Home Meds Active Scripts Ondansetron Odt 4MG Tab (ZOFRAN PO) 4 Mg Tb, 4 MG PO TIDPRN PRN for 3 Days, #9 TAB ODT TAB-DISSOLVE IN MOUTH, THEN SWALLOW Prov:RAY ESTRADA MD 09/14/24 Acetaminophen (Acetaminophen Er) 650 Mg Tab, 650 MG PO TIDPRN PRN for 3 Days, #9 TAB Prov:RAY ESTRADA MD 09/14/24 Current Medications Current Medications Medications (Trade) Dose Ordered Sig/Chastity Route PRN Reason Start Time Stop Time Status Last Admin Ondansetron HCl (Zofran) 4 mg Q4HP PRN IV NAUSEA / VOMITING 10/01/24 22:30 Pantoprazole Sodium (Protonix) 40 mg DAILY IV 10/02/24 10:00 Metronidazole 100 ml @ 100 mls/hr Q8HR IV 10/02/24 06:00 10/02/24 05:26 Ciprofloxacin 200 ml @ 200 mls/hr Q12HR IV 10/02/24 10:00 Ketorolac Tromethamine (Toradol Injection) 15 mg Q6HPRN PRN IV MODERATE PAIN (4-6 PAIN SCALE) 10/01/24 22:30 10/01/24 22:51 DC Acetaminophen/ Hydrocodone Bitart (Lebo 5/325MG Tab) 1 tab Q4HPRN PRN PO MODERATE PAIN (4-6 PAIN SCALE) 10/01/24 23:00 10/02/24 03:19 Morphine Sulfate 1 mg Q4HP PRN IV SEVERE PAIN (7-10 PAIN SCALE) 10/01/24 23:00 Vital Signs Vital Signs Date Time Temp Pulse Resp B/P (MAP) Pulse Ox O2 Delivery O2 Flow Rate FiO2 10/02/24 05:00 97.6 51 18 104/53 (70) 98 97.6 10/02/24 02:50 Room Air* 0 21 Labs/Diagnostic Data Labs Test 10/02/24 04:31 10/01/24 19:52 10/01/24 19:40 10/01/24 14:38 Range/Units White Blood Count 6.2 4.4-10.8 10^3/uL Red Blood Count 4.47 L 4.5-5.90 10^6/uL Hemoglobin 12.8 L 13.5-17.5 g/dL Hematocrit 39.2 L 41.0-53.0 % Mean Corpuscular Volume 87.8 80.0-100.0 fL Mean Corpuscular Hemoglobin 28.6 28.0-32.0 pg Mean Corpuscular Hemoglobin Concent 32.5 32.0-36.0 g/dL Red Cell Distribution Width 14.5 H 11.8-14.3 % Platelet Count 233 140-450 10^3/uL Mean Platelet Volume 8.9 6.9-10.8 fL Neutrophils (%) (Auto) 59.2 37.0-80.0 % Lymphocytes (%) (Auto) 25.3 10.0-50.0 % Monocytes (%) (Auto) 12.4 H 0.0-12.0 % Eosinophils (%) (Auto) 2.4 0.0-7.0 % Basophils (%) (Auto) 0.7 0.0-2.0 % Neutrophils # (Auto) 3.7 1.6-8.6 10 ^3/uL Lymphocytes # (Auto) 1.6 0.4-5.4 10 ^3/uL Monocytes # (Auto) 0.8 0-1.3 10 ^3/uL Eosinophils # (Auto) 0.1 0-0.8 10 ^3/uL Basophils # (Auto) 0 0-0.2 10 ^3/uL Nucleated Red Blood Cells 0.0 % Sodium Level 139 136-145 mmol/L Potassium Level 3.4 L 3.5-5.1 mmol/L Chloride Level 106 98-107 mmol/L Carbon Dioxide Level 25 20-31 mmol/L Anion Gap 8 5-15 Blood Urea Nitrogen 12 9-23 mg/dL Creatinine 0.86 0.700-1.30 mg/dL Glomerular Filtration Rate Calc 126 >90 mL/min BUN/Creatinine Ratio 14.0 10.0-20.0 Serum Glucose 106 74-106 mg/dL Calcium Level 9.0 8.7-10.4 mg/dL Total Bilirubin 0.5 0.2-1.0 mg/dL Aspartate Amino Transferase (AST) 12 L 13-40 U/L Alanine Aminotransferase (ALT) 10 7-40 U/L Alkaline Phosphatase 75 46-116 U/L Total Protein 6.5 5.7-8.2 g/dL Albumin 4.1 3.2-4.8 g/dL Prothrombin Time 11.4 9.3-11.8 sec Prothrombin Time INR 1.08 0.9-1.15 Activated Partial Thromboplast Time 33.1 24.5-34.5 SEC Magnesium Level 2.0 1.6-2.6 mg/dL Lipase 42 12-53 U/L Thyroid Stimulating Hormone (TSH) 1.45 0.55-4.78 uIU/mL Lactic Acid Level 1.1 0.4-2.0 mmol/L Urine Color Yellow Yellow Urine Clarity Clear Clear Urine pH 6.0 5.0-9.0 Urine Specific [place] 1.034 1.001-1.035 Urine Protein Trace H Negative Urine Ketones Negative Negative Urine Blood Negative Negative /uL Urine Nitrite Negative Negative Urine Bilirubin Negative Negative Urine Urobilinogen Normal Negative mg/dL Urine Leukocyte Esterase Negative Negative /uL Urine RBC 3 0 - 3 /hpf Urine Microscopic WBC 1 0-3 /HPF Urine Squamous Epithelial Cells Few <5 /hpf Urine Bacteria None seen None Seen /hpf Urine Mucus Few None Seen Urine Glucose Normal Normal mg/dL Urine Opiates Screen Neg NEGATIVE Urine Fentanyl Screen Neg NEGATIVE Urine Barbiturates Screen Neg NEGATIVE Urine Phencyclidine Screen Neg NEGATIVE Urine Amphetamines Screen Neg NEGATIVE Urine Benzodiazepines Screen Neg NEGATIVE Urine Cocaine Screen Neg NEGATIVE Urine Cannabinoids Screen Neg NEGATIVE Assessment [id number] AFEBRILE VSS ABD SOFT PAIN RUW NON TENDER RLQ CLINICALLY AND RADIOLOGIC NON CONFORMING AC APPENDICITIS KEEP NPO CLOSE OBSERVATION US RUQ R/O AC CHOLECYSTITIS NO INDICATION FOR URGENT SURGERY CONSIDER EMERGENT SURGERY BASED ON ONGOING EVAL NURSE AND FAMILY AT BEDSIDE Plan discussed with: Other CHARLEY LANIER MD Oct 02, 2024 08:46
--- NOTE | 2024-10-02 09:55 | DVHINCON2 ---
DATE OF CONSULTATION: 10/02/2024 HISTORY OF PRESENT ILLNESS: This patient is 23, has autistic history, but he was able to communicate. He is complaining of pain in the right upper quadrant, not in the right lower quadrant. No nausea, vomiting. No constipation, diarrhea. No hematemesis, melena. No bleeding per rectum. I was told that he was here 3 weeks ago, possibly with a similar problem, workup did not indicate any major issue in the abdomen, so right now he has mostly pain in the right upper quadrant. No fever or chills. PAST MEDICAL HISTORY: No diabetes, hypertension. PAST SURGICAL HISTORY: No significant surgical history PHYSICAL EXAMINATION: VITAL SIGNS: He is afebrile, stable signs. HEENT: With no evidence of pallor, cyanosis, or jaundice. NECK: Supple, nontender with no thyromegaly, lymphadenopathy. CHEST AND LUNGS: Clear. HEART: Within normal limits. ABDOMEN: Soft, tender in the right upper quadrant, no tenderness in the right lower quadrant, no rebound. EXTREMITIES: Unremarkable. NEUROLOGIC: Not assessed. CLINICAL IMPRESSION: Clinically and radiologically not confirming appendicitis. At this point, does not need urgent surgery. PLAN: Will be to continue close observation and consider emergent surgery based upon ongoing evaluation. He can also get ultrasound of the right upper quadrant to rule out any gallstone issue. MD CHERRY Velez/MICHAEL/YOLANDA/ARIES TID: [id number] RECEIPT: [id number] cc: Sara Ward MD, Emeterio Mcclain
[2024-10-02] MEDS: CIPROFLOXACIN 400MG/200ML 200 ML IV SCH (10:11)
[2024-10-02] MEDS: PANTOPRAZOLE 40 MG/10 ML VIAL INJ IV SCH (10:11)
--- NOTE | 2024-10-02 12:07 | DVH ---
INDICATION: abd pain TECHNIQUE: Multiple real-time sonographic images were obtained of the right upper quadrant. COMPARISON: US RIGHT LOWER QUAD on DOS: 10/01/24 FINDINGS: The liver demonstrates homogenous echotexture without focal mass lesions. The liver measure s 13cm. There is no intrahepatic or extrahepatic ductal dilatation. The common duct measures 0.3 m m. The gallbladder is without evidence of stone or sludge. The gallbladder wall measures 0.1 mm and is within normal limits. The right kidney measures 10 cm. The right kidney is normal in contour, size, and shape. The echogen icity is normal. There is no hydronephrosis. The pancreas is not well visualized due to overlying bowel gas. IMPRESSION: No sonographic evidence of gallstones or acute cholecystitis.
--- NOTE | 2024-10-02 12:44 | DVHPNRES ---
Progress Note Date Seen: Oct 02, 2024 Resident Creating Document: STEFF DANIELS RESIDENT Has the PT tested + for MRSA If YES, has PT been informed?: No Medical Necessity Reason Pt with a Central, PICC or Fol: No Subjective Review of Systems This is a 23-year-old male with a past medical history of autism spectrum disorder, presenting with intermittent abdominal pain for the past three weeks. The pain is described as sharp and localized to the right upper quadrant, without radiation to the epigastrium or other quadrants. He denies right lower quadrant pain.A CT abdomen and pelvis was performed, which showed a borderline prominence of the appendix, but no periappendiceal inflammatory changes were identified. An abdominal ultrasound did not show evidence of gallstones or cholecystitis, and a chest X-ray was unremarkable. Laboratory studies revealed mild hypokalemia, which has since been corrected. There was no leukocytosis or other major abnormalities in the complete blood count or chemistry panel. The surgical team evaluated the patient today and determined that he is not a surgical candidate at this time, as there are no signs of acute appendicitis or other surgical abdomen. However, given ongoing symptoms, they recommended keeping the patient NPO and plan for reevaluation tomorrow in case the clinical picture evolves. If symptoms progress, surgical intervention may be considered. At this time, the patient is stable, tolerating conservative management, and denies worsening symptoms. Review of Systems (ROS): General: No fever, chills, or weight loss. GI: Reports intermittent RUQ pain; denies nausea, vomiting, diarrhea, constipation, or hematochezia. : Denies dysuria or hematuria. Respiratory: Denies cough or shortness of breath. Cardiac: Denies chest pain or palpitations. Neurologic: Denies headache, weakness, or altered mental status. Musculoskeletal: No joint pain or myalgias. Psychiatric: Baseline autism spectrum disorder; no new behavioral concerns. Patient reports: Feels better Changes from previous H/P or p: Changes Objective vital signs Vital Sign Date Time Temp Pulse Resp B/P (MAP) Pulse Ox O2 Delivery O2 Flow Rate FiO2 10/02/24 09:00 97.6 78 16 110/68 (82) 99 97.6 10/02/24 08:00 Room Air* 0 21 Total Intake and Output 10/01/24 10/01/24 10/02/24 15:00 23:00 07:00 Intake Total 100 ml Balance 100 ml medications Current Medications Medications Dose Ordered Sig/Chastity Route Start Time Stop Time Status Last Admin Dose Admin Ondansetron HCl 4 mg Q4HP PRN IV 10/01/24 22:30 Pantoprazole Sodium 40 mg DAILY IV 10/02/24 10:00 10/02/24 10:11 40 MG Metronidazole 100 ml @ 100 mls/hr Q8HR IV 10/02/24 06:00 10/02/24 05:26 100 MLS/HR Ciprofloxacin 200 ml @ 200 mls/hr Q12HR IV 10/02/24 10:00 10/02/24 10:11 200 MLS/HR Acetaminophen/ Hydrocodone Bitart 1 tab Q4HPRN PRN PO 10/01/24 23:00 10/02/24 03:19 1 TAB Morphine Sulfate 1 mg Q4HP PRN IV 10/01/24 23:00 Examination General: Calm, cooperative, developmentally appropriate behavior consistent with autism diagnosis. HEENT: No scleral icterus or oropharyngeal abnormalities Cardiac: Regular rate and rhythm, no murmurs Respiratory: Clear to auscultation bilaterally Abdomen: Soft, non-distended. Mild tenderness to palpation in the right upper quadrant, no rebound or guarding. No palpable masses or hepatosplenomegaly. Extremities: No edema Neuro: Alert, no focal neurological deficits. Skin: No rash or lesions laboratory and microbiology Laboratory Tests 10/02/24 04:31 Test 10/02/24 04:31 Range/Units Serum Glucose 106 74-106 mg/dL Problem List/Assessment/Plan Problem List/Assessment/Plan # Intermittent RUQ Abdominal Pain, Etiology Unclear - Imaging reveals borderline appendix prominence but no signs of acute appendicitis. - No gallstones or cholecystitis on ultrasound. - Differential includes early appendicitis, functional/psychogenic abdominal pain? - NPO status maintained for surgical reevaluation tomorrow. # Mild Hypokalemia - Corrected - Monitor electrolytes daily. # Autism Spectrum Disorder - At neurological and behavioral baseline. Continue inpatient observation Monitor for signs of surgical abdomen Await surgical reevaluation in 24 hours Maintain NPO status overnight case discussed with goals of care discussed with the patient and mother code status: full code Plan discussed with: Patient, Other (mother) My Orders My Orders Orders - STEFF DANIELS RESIDENT Procedure Category Date Status Time LIVER US 10/02/24 Resulted 11:14 Dietary Evaluation Review Comments: 1) Advance diet as medically feasible 2) Continue current plan of care Expected Outcomes/Goals: Pt will meet >75% estimated needs Fu 2-3 days STEFF DANIELS RESIDENT Oct 02, 2024 12:44
[2024-10-02] MEDS: POTASSIUM CHLORIDE 20 MEQ, LIDOCAINE 1% (LOCAL ANESTH.) 2 ML in SODIUM CHL 0.9% 100 ML IV ONE (16:46)
[2024-10-03 01:00] VITALS: BP 119/58; PULSE 80; RESP 15; TEMP 97.8; O2SAT 99
[2024-10-03 05:00] VITALS: BP 115/64; PULSE 61; RESP 14; TEMP 97.5; O2SAT 98
[2024-10-03 07:01] LABS: Basophils # (auto) 0 10 ^3/uL (0-0.2); Basophils % (auto) 0.6 % (0.0-2.0); Eosinophils # (auto) 0.1 10 ^3/uL (0-0.8); Eosinophils % (auto) 2.1 % (0.0-7.0); Hematocrit 42.5 % (41.0-53.0); Hemoglobin 13.9 g/dL (13.5-17.5); Lymphocytes # (auto) 1.5 10 ^3/uL (0.4-5.4); Lymphocytes % (auto) 25.6 % (10.0-50.0); Mean Corpuscular Hemoglobin 28.4 pg (28.0-32.0); Mean Corpuscular Hgb Conc. 32.8 g/dL (32.0-36.0); Mean Corpuscular Volume 86.6 fL (80.0-100.0); Monocytes # (auto) 0.6 10 ^3/uL (0-1.3); Monocytes % (auto) 10.2 % (0.0-12.0); Neutrophils # (auto) 3.6 10 ^3/uL (1.6-8.6); Neutrophils % (auto) 61.5 % (37.0-80.0); Nucleated Red Blood Cells % 0.1 %; Platelet Count (auto) 241 10^3/uL (140-450); Red Cell Distribution Width 14.3 % (11.8-14.3); White Blood Cell 5.9 10^3/uL (4.4-10.8)
[2024-10-03 07:18] LABS: Anion Gap 11 (5-15); Calcium 9.7 mg/dL (8.7-10.4); Carbon Dioxide 23 mmol/L (20-31); Chloride 104 mmol/L (98-107); Potassium 3.9 mmol/L (3.5-5.1); Sodium 138 mmol/L (136-145)
[2024-10-03 07:24] LABS: BUN/Creatinine Ratio 10.1 (10.0-20.0); Blood Urea Nitrogen 9 mg/dL (9-23); Glucose 85 mg/dL (74-106)
[2024-10-03 09:06] VITALS: BP 122/59; PULSE 63; RESP 16; TEMP 97.9; O2SAT 97
--- NOTE | 2024-10-03 09:56 | ECG ---
[facility] Test Date: 2024-10-01 Test Time: 20:33:02 Pat Name: KATELYN BIGGS Department: ED Room: 0283 A Gender: M Apple Turner: DENNY : 2000 Requested By: JERONIMO BLUE Order Number: [id number] Reading MD: Jose Latham Measurements Intervals [place] Rate: 67 P: -16 UT: 139 QRS: -15 QRSD: 92 T: -3 QT: 397 QTc: 419 Interpretive Statements Sinus rhythm LVH by voltage Borderline T abnormalities, inferior leads Electronically Signed On 10-03-2024 18:43:11 PDT by Jose Latham Please click the below link to view image of tracing.
[2024-10-03] MEDS ORDERED: GASTROGRAFIN 30 ML SOL ONE (12:45)
[2024-10-03 13:00] VITALS: BP 100/51; PULSE 72; RESP 16; TEMP 98; O2SAT 100
--- NOTE | 2024-10-03 13:52 | DVH ---
Exam: CT CT AB PEL WITH ORAL CON ONLY History: appendicitis Comparison Study: CT CT AB PEL WITH IV CON ONLY on DOS: 10/01/24, CT CT AB PEL WITH IV CON ONLY on DOS : 09/13/24 Technique: Multidetector spiral CT of the abdomen and pelvis was performed from lung bases to pubic symphysis. Imaging was performed without IV contrast. Axial, coronal and sagittal multiplanar reform ats were obtained from the axial data set by the technologist. Radiation dose : Abdomen/Pelvis: CTDIvol 5 mGy, DLP 292 mGy*cm. Findings: Evaluation of solid organs is limited due to lack of intravenous contrast use. Lung Bases: No acute or significant lung base finding. Normal heart size. No pleural or pericardial effusion. Liver: The liver is normal in size. No focal lesions. Gallbladder and biliary Tree: Sludge in the gallbladder. Spleen: Unremarkable Pancreas: The pancreas is grossly normal in appearance. Adrenal Glands: Unremarkable Kidneys: Kidneys are grossly normal without calculi or hydronephrosis. Bladder: Grossly unremarkable for degree of distention. Bowel: The stomach is grossly normal in appearance. Small bowel and colon are normal in caliber and d istribution. Stable appearance of the appendix which is mildly prominent without periappendiceal stra nding. Ascites: Absent Lymphadenopathy: No mesenteric, retroperitoneal or periportal lymphadenopathy. Abdominal wall and Mesentery: Unremarkable. Vasculature: The visualized abdominal aorta is normal in size and caliber. Evaluation of abdominal a nd pelvic vessels is limited due to lack of intravenous contrast. Pelvic Organs: Unremarkable Musculoskeletal: No aggressive focal bony lesions, acute fractures or dislocation. IMPRESSION: 1. Stable mild prominence of the appendix without periappendiceal stranding to suggest acute appendic itis. Clinical correlation and continued follow-up is recommended. Radiation optimization: All CT scans at this facility use at least one of these dose optimization derrick hniques: Automated exposure control mA and/or kV adjustment per patient size (includes targeted exams where dose is matched to clinical indication) or iterative reconstruction. HS:Y
[2024-10-03] MEDS ORDERED: CLOPIDOGREL BISULFATE 75 MG TAB ONE (16:15)
[2024-10-03 17:03] VITALS: BP 132/64; PULSE 65; RESP 16; TEMP 98.4; O2SAT 98
--- NOTE | 2024-10-03 18:44 | DVHPN2 ---
Progress Note Date Seen: Oct 03, 2024 Has the PT tested + for MRSA If YES, has PT been informed?: No Medical Necessity Reason Pt with a Central, PICC or Fol: No Objective vital signs Vital Sign Date Time Temp Pulse Resp B/P (MAP) Pulse Ox O2 Delivery O2 Flow Rate FiO2 10/03/24 17:03 98.4 65 16 132/64 (86) 98 98.4 10/03/24 08:05 Room Air* 0 21 Total Intake and Output 10/02/24 10/02/24 10/03/24 15:00 23:00 07:00 Intake Total 200 ml 412 ml 200 ml Balance 200 ml 412 ml 200 ml medications Current Medications Medications Dose Ordered Sig/Chastity Route Start Time Stop Time Status Last Admin Dose Admin Ondansetron HCl 4 mg Q4HP PRN IV 10/01/24 22:30 Pantoprazole Sodium 40 mg DAILY IV 10/02/24 10:00 10/03/24 12:55 40 MG Metronidazole 100 ml @ 100 mls/hr Q8HR IV 10/02/24 06:00 10/03/24 14:34 100 MLS/HR Ciprofloxacin 200 ml @ 200 mls/hr Q12HR IV 10/02/24 10:00 10/03/24 12:55 200 MLS/HR Acetaminophen/ Hydrocodone Bitart 1 tab Q4HPRN PRN PO 10/01/24 23:00 10/02/24 03:19 1 TAB Morphine Sulfate 1 mg Q4HP PRN IV 10/01/24 23:00 laboratory and microbiology Laboratory Tests 10/03/24 06:07 Test 10/03/24 06:07 Range/Units Serum Glucose 85 74-106 mg/dL Microbiology Date/Time Source Procedure Growth Status 10/03/24 12:00 Stool Stool Culture - Preliminary Resulted 10/03/24 12:00 Stool Shiga Toxin I & II - Final Resulted 10/01/24 19:52 Blood Blood Culture - Preliminary NO GROWTH AFTER 24 HOURS OF INCUBATION. Resulted Problem List/Assessment/Plan Problem List/Assessment/Plan AFEBRILE VSS ABD SOFT NON TENDER REPEAT CT SCAN NOT CONFIRMING AC APPENDICITIS ALLOW CLEAR LIQUIDS Plan discussed with: Patient My Orders My Orders Orders - CHARLEY LANIER MD Procedure Category Date Status Time Ct Ab Pel With Oral CT 10/03/24 Resulted Con Only 12:35 Dietary Evaluation Review Comments: 1) Advance diet as medically feasible 2) Continue current plan of care Expected Outcomes/Goals: Pt will meet >75% estimated needs Fu 2-3 days CHARLEY LANIER MD Oct 03, 2024 18:44
--- NOTE | 2024-10-03 20:50 | DVHPN2 ---
Assessment/Plan Assessment/Plan Progress note 23 M wt ASD admitted for abdominal pain. seen today during rounds, pain improved. will escalate clear liq once repeat CT done physical exam aox3 clear breath sounds s1 s2 rrr no murmur abdomen soft, ochoa negative, mcburney negative psoas sign negative no le edema labs ekg imaging reviewed assessment and plan rule out acute appy ASD surg consult appreciated repeat ct iv oral con once done escalate diaet pain mgmt dvt ppx ambulatory diet clear liq Plan discussed with: Patient My Orders Orders - KISHORE VELÁZQUEZ MD Procedure Category Date Status Time Clear Liq Diet DIET 10/03/24 Transmitted Dinner Date of Service: Oct 03, 2024 Billing Provider: KISHORE VELÁZQUEZ MD Common Visit Codes: [id number] INP/OBS CARE(HIGH) KISHORE VELÁZQUEZ MD Oct 03, 2024 20:50
[2024-10-03 21:00] VITALS: BP 114/68; PULSE 66; RESP 14; TEMP 97.8; O2SAT 98
[2024-10-04 01:00] VITALS: BP 111/69; PULSE 65; RESP 14; TEMP 97.3; O2SAT 99
[2024-10-04 08:36] VITALS: BP 115/63; PULSE 56; RESP 16; TEMP 98; O2SAT 100
[2024-10-04 12:40] VITALS: BP 122/75; PULSE 88; RESP 16; TEMP 98.2; O2SAT 99
[2024-10-04] MEDS ORDERED: LEVO500T91 PO (15:08)
--- NOTE | 2024-10-04 15:10 | DVHDS2 ---
Discharge Summary Date of Admission Oct 01, 2024 at 22:22 Date of Discharge: Oct 04, 2024 Labs/Diagnostic Data: Laboratory Results Test 10/03/24 12:00 10/03/24 06:07 10/02/24 04:31 10/01/24 19:52 Stool for White Cells None seen White Blood Count 5.9 10^3/uL (4.4-10.8) Red Blood Count 4.90 10^6/uL (4.5-5.90) Hemoglobin 13.9 g/dL (13.5-17.5) Hematocrit 42.5 % (41.0-53.0) Mean Corpuscular Volume 86.6 fL (80.0-100.0) Mean Corpuscular Hemoglobin 28.4 pg (28.0-32.0) Mean Corpuscular Hemoglobin Concent 32.8 g/dL (32.0-36.0) Red Cell Distribution Width 14.3 % (11.8-14.3) Platelet Count 241 10^3/uL (140-450) Mean Platelet Volume 9.1 fL (6.9-10.8) Neutrophils (%) (Auto) 61.5 % (37.0-80.0) Lymphocytes (%) (Auto) 25.6 % (10.0-50.0) Monocytes (%) (Auto) 10.2 % (0.0-12.0) Eosinophils (%) (Auto) 2.1 % (0.0-7.0) Basophils (%) (Auto) 0.6 % (0.0-2.0) Neutrophils # (Auto) 3.6 10 ^3/uL (1.6-8.6) Lymphocytes # (Auto) 1.5 10 ^3/uL (0.4-5.4) Monocytes # (Auto) 0.6 10 ^3/uL (0-1.3) Eosinophils # (Auto) 0.1 10 ^3/uL (0-0.8) Basophils # (Auto) 0 10 ^3/uL (0-0.2) Nucleated Red Blood Cells 0.1 % Sodium Level 138 mmol/L (136-145) Potassium Level 3.9 mmol/L (3.5-5.1) Chloride Level 104 mmol/L (98-107) Carbon Dioxide Level 23 mmol/L (20-31) Anion Gap 11 (5-15) Blood Urea Nitrogen 9 mg/dL (9-23) Creatinine 0.89 mg/dL (0.700-1.30) Glomerular Filtration Rate Calc 124 mL/min (>90) BUN/Creatinine Ratio 10.1 (10.0-20.0) Serum Glucose 85 mg/dL (74-106) Calcium Level 9.7 mg/dL (8.7-10.4) Total Bilirubin 0.5 mg/dL (0.2-1.0) Aspartate Amino Transferase (AST) 12 U/L (13-40) Alanine Aminotransferase (ALT) 10 U/L (7-40) Alkaline Phosphatase 75 U/L (46-116) Total Protein 6.5 g/dL (5.7-8.2) Albumin 4.1 g/dL (3.2-4.8) Prothrombin Time 11.4 sec (9.3-11.8) Prothrombin Time INR 1.08 (0.9-1.15) Activated Partial Thromboplast Time 33.1 SEC (24.5-34.5) Magnesium Level 2.0 mg/dL (1.6-2.6) Lipase 42 U/L (12-53) Thyroid Stimulating Hormone (TSH) 1.45 uIU/mL (0.55-4.78) Test 10/01/24 19:40 10/01/24 14:38 Lactic Acid Level 1.1 mmol/L (0.4-2.0) Urine Color Yellow (Yellow) Urine Clarity Clear (Clear) Urine pH 6.0 (5.0-9.0) Urine Specific [place] 1.034 (1.001-1.035) Urine Protein Trace (Negative) Urine Ketones Negative (Negative) Urine Blood Negative /uL (Negative) Urine Nitrite Negative (Negative) Urine Bilirubin Negative (Negative) Urine Urobilinogen Normal mg/dL (Negative) Urine Leukocyte Esterase Negative /uL (Negative) Urine RBC 3 /hpf (0 - 3) Urine Microscopic WBC 1 /HPF (0-3) Urine Squamous Epithelial Cells Few /hpf (<5) Urine Bacteria None seen /hpf (None Seen) Urine Mucus Few (None Seen) Urine Glucose Normal mg/dL (Normal) Urine Opiates Screen Neg (NEGATIVE) Urine Fentanyl Screen Neg (NEGATIVE) Urine Barbiturates Screen Neg (NEGATIVE) Urine Phencyclidine Screen Neg (NEGATIVE) Urine Amphetamines Screen Neg (NEGATIVE) Urine Benzodiazepines Screen Neg (NEGATIVE) Urine Cocaine Screen Neg (NEGATIVE) Urine Cannabinoids Screen Neg (NEGATIVE) Other Laboratory Tests 10/03/24 06:07 Brief Hx & Hospital Course: 23 M wtih ASD admitted for abdominal pain. no definite imaging dx, patient seen by surgery, abdominal pain initially was RLQ then RUQ, now resolved. Likely viral vs bact GE. liver US negative. stable to dc home with levoflox Condition at Discharge: Good Final Diagnosis/Problems List rule out acute appy ruled out cholelithiasis / cholecystisis likely viral vs bacterial GE ASD Discharge Disposition: Home Discharge Instruct/Medications Diet: Consistent carbohydrate, Cardiac 2g Na,low cholest Activity: No Restrictions, As Tolerated Medications: levo Discharge Statement: "Patient was advised to return to the ER or call 911 if any headaches, dizziness, shortness of breath, chest pain, abdominal pain, bleeding, fevers, or worsening of medical condition. Patient was counseled about treatment plan, medications, possible side effects, patientverbalized understanding. All questions were answered to the best of my ability. This discharge took greater then 30 minutes in planning, reviewing documentation, counseling the patient, and discussing with other team members." ASSESSMENT ASSESSMENT Assessment rule out acute appy ruled out cholelithiasis / cholecystisis likely viral vs bacterial GE ASD Date of Service: Oct 04, 2024 Billing Provider: KISHORE VELÁZQUEZ MD Common Visit Codes: [id number] DISCH DAY >30min KISHORE VELÁZQUEZ MD Oct 04, 2024 15:10
[2024-10-04 16:59] VITALS: BP 124/74; PULSE 66; RESP 17; TEMP 97.9; O2SAT 99
== END 2024-10-04 17:18 | disposition home or self-care (01) | DRG 249 ==
LOC: ER 14:23 → OVERFLOW 22:22 → WEST WING 10-02 02:48
PROVIDERS: ADMIT Student in an Organized Health Care Education/Training Program; ATTEND Internal Medicine
DX: A08.4 Viral intestinal infection, unspecified (principal); Q21.10 Atrial septal defect, unspecified; A04.9 Bacterial intestinal infection, unspecified; E87.6 Hypokalemia; F84.0 Autistic disorder; Z83.3 Family history of diabetes mellitus; Z79.899 Other long term (current) drug therapy; Z88.8 Allergy status to other drugs, medicaments and biological substances
CPT/HCPCS: 36415; 71045; 74176; 74177; 76705; 80048; 80053; 80307; 81001; 83605; 83690; 83735; 84075; 84443; 84450; 84460; 85025; 85048; 85610; 85730; 87040; 87045; 87177; 87427; 93005; 96365; 96375; G0378; J2003; J2470; J2543; J3490

== ENCOUNTER 2025-04-09 18:29 | Emergency (ER) | payer MEDICAID ==
[~2025-04-09 18:29] MED LIST changes: -ACET650T12 PO; +LEVO500T91 PO; -ZOFR4T PO
[2025-04-09] MEDS: SODIUM CHLORIDE 0.9% 1,000 ML IV ONE (20:38)
[2025-04-09] MEDS: ONDANSETRON HCL 4 MG/2 ML VIAL IV ONE (20:49)
[2025-04-09] MEDS: PROCHLORPERAZINE EDISYLATE 5 MG/ML 2ML VIAL IV ONE (20:50)
--- NOTE | 2025-04-09 21:14 | ED.PDOC ---
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 PATIENT REPORTS SUDDEN ONSET OF HEADACHE TOP OF FOREHEAD 8/10 ON PAIN SCALE RELATED SYMPTOMS OF INTERMITTENT BLURRY VISION AND VOMITING WITH NAUSEA. PATIENT HAS NOT TRIED ANY [id number] RELIEF MEASURES. DENIES ANY NUMBNESS, WEAKNESS, LOSS OF BALANCE, CHEST PAIN, SHORTNESS OF BREATH, DIFFICULTY BREATHING, FEVER OR CHILLS. NOTES NO KNOWN INJURY OR RECENT TRAVEL Chief Complaint: Headache Time Seen by MD: 18:36 Primary Care Provider: UNKNOWN Reviewed Notes: Nurses Notes, Medications, Allergies Information Source: Patient, Relative (Mother) Mode of Arrival: Ambulatory Past Medical History Past Medical History (Other): AUTISM Surgical History: Denies all surgeries Family History Family History: Unknown Social History Smoker: Non-Smoker Alcohol: Denies ETOH Use Drugs: Denies Drug Use Lives In: Home All Other Systems: Reviewed and Negative (SEE HPI) Physical Exam General Appearance: No Apparent Distress, Normal HEENT: Normal ENT Inspection, Pharynx Normal, TMs Normal Neck: Full Range of Motion, Non-Tender Respiratory: Lungs Clear, No Respiratory Distress, Normal Breath Sounds Cardiovascular: No Edema, No JVD, No Murmur, No Gallop, Normal Peripheral Pulses, Regular Rate/Rhythm Breast Exam: Deferred Gastrointestinal: No Organomegaly, Non Tender, No Pulsatile Mass, Normal Bowel Sounds, Soft Genitalia: Deferred Pelvic: Deferred Rectal: Deferred Extremities: Normal capillary refill, Normal range of motion, No pedal edema Musculoskeletal : Apperance: Normal Neurologic: Alert, No Motor Deficits, Normal Affect, Normal Mood, No Sensory Deficits Cerebellar Function: Normal Reflexes: Normal, NOT DONE Skin: Dry, Normal Color, Warm Lymphatic: No Adenopathy Was a procedure done? Was a procedure done?: No Differential Diagnosis (SZ) Seizure: Meningitis Headache: Cluster, Migraine, Epidural Hemorrhage, Intracerebral Hemorrhage, Subarachnoid Hemorrhage, Subdural Hemorrhage, Mass Lesion, Post-Traumatic, Sinusitis X-Ray, Labs, Meds, VS Vital Signs Date Time Temp Pulse Resp B/P (MAP) Pulse Ox O2 Delivery O2 Flow Rate FiO2 04/09/25 20:03 98.2 61 18 111/68 (82) 100 98.2 04/09/25 18:31 97.6 60 18 115/69 100 97.6 Lab Test 04/09/25 20:20 Range/Units POC Glucose 126 H 70-106 mg/dl Current Medications Medications (Trade) Dose Ordered Sig/Chastity Route Start Time Stop Time Status Last Admin Ondansetron HCl (Zofran) 4 mg ONCE ONCE IV 04/09/25 20:15 04/09/25 20:17 DC 04/09/25 20:49 Sodium Chloride 1,000 ml @ 1,000 mls/hr Q1H ONCE IV 04/09/25 20:15 04/09/25 21:14 DC 04/09/25 20:38 Prochlorperazine Edisylate (Compazine Inj) 5 mg ONCE ONCE IV 04/09/25 20:15 04/09/25 20:17 DC 04/09/25 20:50 Dexamethasone Sodium Phosphate (Decadron Injection) 10 mg ONCE ONCE IV 04/09/25 20:15 04/09/25 20:17 DC 04/09/25 20:50 X-Ray, Labs, Meds, VS Comment PATIENT GIVEN 1 L OF NORMAL SALINE, DECADRON 10 MG IV PUSH, AND COMPAZINE 10 MG IV PUSH NOTED IMPROVEMENT IN MIGRAINE REQUESTING DISCHARGE AT THIS TIME. [facility] IS ALLERGIC TO NSAIDS. SCRIPT TRIAL OF SUMATRIPTAN. ADVISED TO TAKE MEDICATION PRESCRIBED SIDE EFFECTS DISCUSSED. ADVISED TO REST INCREASE P.O. FLUIDS WITH ELECTROLYTES. FOLLOW UP WITH YOUR PCP IN 2-3 DAYS NECESSARY ER RETURN PRECAUTIONS GIVEN PATIENT AND MOTHER INDICATED UNDERSTANDING AND AGREE WITH DISCHARGE PLAN OF CARE Time of 1ST Reevaluation: 18:36 Reevaluation 1ST: Unchanged Time of 2ND Reevaluation: 21:13 Reevaluation 2ND: Improved Patient Education/Counseling: Diagnosis, Treatment, Need For Follow Up Family Education/Counseling: Diagnosis, Treatment, Need For Follow Up Departure 1 Departure Time of Disposition: 21:13 Impression: Primary Impression: Headache Qualified Codes: R51.9 - Headache, unspecified Disposition: 01 HOME / SELF CARE / HOMELESS Condition: Stable e-Prescriptions Sumatriptan Succinate (Sumatriptan Succinate) 25 Mg Tab 25 MG PO ONCE PRN for 3 Days, #6 TAB TAKE ONE TABLET BY MOUTH AT ONSET OF HEADACHE MAY REPEAT ONE TAB 2 HOURS LATER IF HEADACHE PERSISTS. Prov: CAROLYN HOWELL [employer] ADVISORY TEAM WATCH OFFICER 04/09/25 Ondansetron Odt 4MG Tab (ZOFRAN PO) 4 Mg Tb 4 MG PO TID PRN for 4 Days, #12 TAB ODT TAB-DISSOLVE IN MOUTH, THEN SWALLOW Prov: CAROLYN HOWELL 04/09/25 Discharged With: Relative (Mother) Critical Care Note Critical Care Time?: No Stability Stability form required: CAROLYN Kamara Apr 09, 2025 21:14
[2025-04-09] MEDS ORDERED: ZOFR4T PO (21:17)
[2025-04-09] MEDS ORDERED: SUMA25TA2 PO (21:17)
[2025-04-09 21:26] VITALS: BP 112/62; PULSE 60; RESP 20; TEMP 97.5; O2SAT 98
== END 2025-04-09 21:28 | disposition home or self-care (01) ==
LOC: ER 18:34
DX: R51.9 Headache, unspecified (principal); F84.0 Autistic disorder
CPT/HCPCS: 82947; 96361; 96374; 96375; 99284; J0780; J1100; J2405; J7030; 82962